=== PATIENT | female | born 1970 | race Two or more races ===

== ENCOUNTER 2022-06-08 23:31 | Emergency (ER) | payer MEDICAID ==
[~2022-06-08] VITALS: Ht 162.6 cm; Wt 98.4 kg
--- NOTE | 2022-06-09 00:33 | NUR ---
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
[2022-06-09 00:41] VITALS: BP 131/94
--- NOTE | 2022-06-09 00:41 | NUR ---
SHER FROM HOME C/O R ANKLE PAIN & SWELLING. "TWISTED ANKLE STEPPING OFF STAIRS" ON " 06/09 PM
[2022-06-09] MEDS ORDERED: IBUPROFEN 400 MG TABLET ONE (00:42)
[2022-06-09] MEDS ORDERED: IBUPROFEN 400 MG TABLET PO ONE (01:00)
--- NOTE | 2022-06-09 02:16 | NUR ---
VINNIE WRAP APPLIED TO R ANLKE
--- NOTE | 2022-06-09 02:18 | NUR ---
Patient discharged to home in stable condition. Written and verbal after care instructions given. Patient verbalizes understanding of instruction.
--- NOTE | 2022-06-09 02:24 | NUR ---
Patient discharged to home in stable condition. Written and verbal after care instructions given. Patient verbalizes understanding of instruction. PT ambulatory with a steady gait
== END 2022-06-09 02:26 | disposition home or self-care (01) ==
LOC: ER 23:32
DX: S93.401A Sprain of unspecified ligament of right ankle, initial encounter (principal); X37.1XXA Tornado, initial encounter; Y93.89 Activity, other specified; Y92.89 Other specified places as the place of occurrence of the external cause; Y99.8 Other external cause status
CPT/HCPCS: 73610-TC